=== PATIENT | male | born 1995 | race Caucasian/White ===

== ENCOUNTER → 2017-10-27 | Outpatient (REF) ==
[~2017-10-27] MED LIST: CEPHALEXIN500 M1; IBU600 MG PO; NAPROSYN 2250 MG/TAB; NORCO 325 MG-51 TAB PO; ROCEPHIN1 GM/50 ML
[2017-10-27 15:49] LABS: BASO % 0.3 % (0.0-2.0); EOS % 0.3 % (0-4.0); GRAN % 86.1 % (42.2-75.2); HEMATOCRIT 40.1 % (36.0-47.0); HEMOGLOBIN 12.9 g/dl (12.5-16.1); LYMPH # 1.3 (1.2-3.4); LYMPH % 9.1 % (20.0-51.0); MEAN CELL VOLUME 89 fl (80.0-95.0); MEAN CORPUSCULAR HEMOGLOBIN 29 pg (26.0-32.0); MEAN CORPUSCULAR HGB CONC 32 g/dl (33.0-37.0); MEAN PLATELET VOLUME 9.6 fl (7.4-10.4); MONO # 0.5 (0.1-0.6); MONO % 3.8 % (1.7-9.3); PLATELET COUNT 260 K/mm3 (130-400); RED BLOOD COUNT 4.53 M/mm3 (4.20-5.60); REDCELL DISTRIBUTION WIDTH-CV 12.9 % (11.5-14.5)
[2017-10-27 15:59] LABS: ALBUMIN 3.7 gm/dL (3.5-5.0); BILIRUBIN,TOTAL 0.4 mg/dL (0.0-1.0); CALCIUM 8.7 mg/dL (8.4-10.2); CREATININE, serum 0.66 mg/dL (0.66-1.25); POTASSIUM 3.9 mmol/L (3.4-5.0); TOTAL PROTEIN 6.8 gm/dL (6.4-8.2)
== END ==
LOC: ZMSC 15:45
PROVIDERS: Orthopaedic Surgery Sports Medicine
DX: Z01.89 Encounter for other specified special examinations (principal)